=== PATIENT | female | born 2000 | race Caucasian/White ===

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

== ENCOUNTER 2021-03-26 07:55 | Outpatient (CLI) | payer BC, MEDICAID, SELFPAY ==
--- NOTE | 2021-03-26 08:00 | MR_ITS ---
WS: [id number] MRI LUMBAR SPINE NONCONTRAST HISTORY: M54.9 - Dorsalgia, unspecified COMPARISON: 12/12/2020 TECHNIQUE: Sagittal and axial multisequence imaging is submitted. Normal lumbar alignment with no compression fractures or marrow edema. Very mild disc desiccation at L4-5 and L5-S1 without loss of height. Conus terminates normally at L1. L1-L2: Normal. L2-L3: Normal. L3-L4: Normal. L4-L5: Mild annular disc bulge with a moderate LEFT paracentral disc protrusion contacting and deform ing the LEFT lateral thecal sac. Displacement and abutment of the LEFT L5 nerve root. Mild bilateral foraminal stenosis and mild encroachment into the LEFT lateral recess. L5-S1: Mild annular disc bulging with a central disc protrusion and annular fissure. Minimal narrowin g of the LEFT lateral recess. There is also mild narrowing of the foramina, LEFT greater than RIGHT. Small amount of free fluid in the cul-de-sac. MR/MR lumbar spine wo con* [id number] IMPRESSION: 1. Moderate LEFT paracentral disc protrusion at L4-5 contacting and displacing the L5 nerve root in the lateral recess. 2. Mild bilateral foraminal and mild LEFT lateral recess stenosis at L4-5. 3. Central disc protrusion at L5-S1 with narrowing of the LEFT lateral recess. No displacement of the S1 nerve root. 4. Mild bilateral foraminal stenosis, LEFT greater than RIGHT at L5-S1.
== END 2021-03-26 07:56 | disposition home or self-care (01) ==
LOC: RADSHAW 07:58
PROVIDERS: PCP Nurse Practitioner Family; Visit Provider Orthopaedic Surgery
DX: M51.26 Other intervertebral disc displacement, lumbar region (principal); M48.07 Spinal stenosis, lumbosacral region
CPT/HCPCS: 72148

== ENCOUNTER → 2021-04-08 08:28 | Outpatient (BNVA) | payer BC, MEDICAID, SELFPAY | PROVIDERS: PCP Registered Nurse; Referring Provider Orthopaedic Surgery; Visit Provider Anesthesiology Pain Medicine | DX: M48.062 Spinal stenosis, lumbar region with neurogenic claudication (principal); M51.16 Intervertebral disc disorders with radiculopathy, lumbar region; F17.210 Nicotine dependence, cigarettes, uncomplicated | CPT/HCPCS: 99204 ==

== ENCOUNTER → 2021-04-17 14:26 | Outpatient (BNVA) | payer BC, MEDICAID, SELFPAY | PROVIDERS: PCP Registered Nurse; Visit Provider Anesthesiology Pain Medicine | DX: M51.16 Intervertebral disc disorders with radiculopathy, lumbar region (principal); M48.062 Spinal stenosis, lumbar region with neurogenic claudication; F17.210 Nicotine dependence, cigarettes, uncomplicated | CPT/HCPCS: 64483; 64484; J1100; J3490 ==

== ENCOUNTER → 2021-05-01 08:42 | Outpatient (BNVA) | payer BC, MEDICAID, SELFPAY | PROVIDERS: PCP Registered Nurse; Visit Provider Anesthesiology Pain Medicine | DX: M51.16 Intervertebral disc disorders with radiculopathy, lumbar region (principal); M51.17 Intervertebral disc disorders with radiculopathy, lumbosacral region; M48.062 Spinal stenosis, lumbar region with neurogenic claudication; M79.604 Pain in right leg; M79.605 Pain in left leg | CPT/HCPCS: 99214 ==

== ENCOUNTER 2021-07-10 07:17 | Day surgery (SDC) | payer BC, MEDICAID, SELFPAY ==
--- NOTE | 2021-07-08 13:25 | ANES.PREANE2 ---
Pre-Anesthetic Assessment Pre-Anesthetic Assessment: Height/Weight: Height 1.78 m Weight 72.575 kg Proposed Procedure: Operation Date: 07/10/21 11:30 Proposed Procedures p Lumbar Spine Decompression 91670 M48.062(Not Applicable) - Darell Jose, DO Was Beta Lalo taken within 24 hours: N/A Was Clonidine taken within 24 hours: N/A Social: Social History: Tobacco and No alcohol Exam: Pre-Anes Outpt Exam: alert, oriented x 3 and regular rate & rhythm Airway: Submandibular: WNL Cervical ROM: WNL MP: 2 Dentition: Full History/ROS: No significant history except as noted Musc/skel: Musc/skel: Lower Back Pain Anesthetic Plan: ASA status: 2 Anesthesia: General Risk of > 500 ml blood loss (7ml/kg in children): No PFSH Anesthesia PFSH: Social History Smoking and tobacco status: current every day smoker Alcohol intake: never Female Reproductive History: Date of last menstrual period: 04/30/20 Data Anesthesia Cardiac Studies: No Data to Display
[2021-07-08 13:29] VITALS: BMI 22.9
[2021-07-10] VITALS (8 sets, daily range): BP systolic 96–145; BP diastolic 63–82; PULSE 62–94; RESP 15–20; TEMP 36.4–36.7; O2SAT 95–100
--- NOTE | 2021-07-10 | SCC_ITS ---
Procedure Done: 1. Left L4/5 laminectomy with parital facetectomy 8.0 seconds of fluoroscopic guidance, for a cumulative dose of 1.65 mGy, was provided to Dr. Jose by the radiology department. C-arm images of the lumbar spine were saved for the patient's permanent record. [facility]
--- NOTE | 2021-07-10 | XR_ITS ---
WS: [id number] INTRAOPERATIVE TECHNIQUE: 2 Spot fluoroscopic images for intraoperative purposes. FLUOROSCOPY TIME: 8.0 seconds CLINICAL INFORMATION: LUMBAR DECOMPRESSION COMPARISON: None. FINDINGS: Localizer projected over the L4-5 interspace XR/XR lumbar spine 1V [id number] IMPRESSION: Images obtained for intraoperative purposes.
--- NOTE | 2021-07-10 | SCC_ITS ---
Procedure Done: 1. Left L4/5 laminectomy with parital facetectomy 8.0 seconds of fluoroscopic guidance, for a cumulative dose of 1.65 mGy, was provided to Dr. Jose by the radiology department. C-arm images of the lumbar spine were saved for the patient's permanent record. [facility]
[2021-07-10 07:59] LABS: OR HCG Qualitative Urine Negative (Negative)
[2021-07-10] MEDS: sodium chloride 0.9% 1,000 ML 30 ML IV (08:00)
--- NOTE | 2021-07-10 08:28 | P.ANESUD_ITS ---
Pre-Anesthetic Update Pre-Anesthetic Assessment: Date of Surgery/Procedure: 07/10/21 Preop Shanta gnosis: lumbar stenosis with neurogenic decompression Proposed Procedure: Operation Date: 07/10/21 08:45 Proposed Procedures p Lumbar Spine Decompression 61172 M48.062(Not Applicable) - Darell Jose, DO Any changes to Pre-Anesthetic Assessment?: No Last Intake: Intake Last Liquid Date 07/09/21 Last Liquid Time 22:00 Last Solid Date 07/09/21 Last Solid Time 22:00 Labs Last 48hrs: Laboratory Results - last 48 hr 07/10/21 07:58 Urine HCG, Qual Negative Vitals: Temperature 98.1 F 07/10/21 07:43 Pulse Rate 83 07/10/21 07:43 Respiratory Rate 16 07/10/21 07:43 Blood Pressure 112/64 07/10/21 07:43 Blood Pressure Maria L n 80 07/10/21 07:43 Pulse Oximetry 100 07/10/21 07:43 Oxygen Delivery Me thod 07/10/21 07:48 Exam: Pre-Anes Outpt Exam: alert, oriented x 3, clear to auscultation bilaterally and regular rate & rhythm Cardiac Studies: No Data to Display
--- NOTE | 2021-07-10 08:53 | W.PM.OPSUD ---
Surgery/Procedure H&P Update DATE OF PROCEDURE: July 10, 2021 DATE H&P PERFORMED: 07/02/21 H&P UPDATE INFORMATION: I have reviewed H&P completed within last 30 days, I have examined patient prior to procedure and No changes to prior documentation PREOP DIAGNOSIS: lumbar stenosis with neurogenic decompression PLANNED PROCEDURE: Operation Date: 07/10/21 08:45 Proposed Procedures p Lumbar Spine Decompression 19498 M48.062(Not Applicable) - Darell Jose DO
--- NOTE | 2021-07-10 09:54 | P.OP_ITS ---
Operative Report Date of procedure: July 10, 2021 Pre-op Diagnosis: lumbar stenosis with neurogenic decompression Post-op diagnosis: same Procedure Done: 1. Left L4/5 laminectomy with parital facetectomy Surgeon: Darell Jose Avionics System Engineer: Jony Mulligan Avionics System Engineer: KODI Cardozo PA assisted with positioning the patient closure of the patient retraction and suction. Anesthesia: General Estimated blood loss (mL): 5 Condition: stable Disposition: PACU Procedure: 1. Left L4/5 laminectomy with parital facetectomy Patient is brought to the operative suite. After undergoing anesthesia they are placed in the supine position. All areas of impingement are well padded. Patient is then prepped and draped in the normal sterile fashion. A skin incision is made over the L4/5 level. This is confirmed under c-arm guidance. A series of dilators are passed and the tubular retractor is docked on the L4 lamina. A bovie is used to clear the soft tissue off the lamina and the L 4/5 facet joint. A high speed caro is then used to perform the laminectomy and take down the medial aspect of the L 4/5 facet joint. A kerrison rongeure was then used to take down the remaining lamina and smooth the edge of the laminectomy up to the point where the ligamentum flavum attaches. Attention was then brought to the medial aspect of the facet joint. The remaining medial aspect of the superior and inferior aspect of the facet joint were taken down with the kerrison from the pedicle of L4 to L 5. The facet joint had significant hypertrophy. Attention was then brought to the Ligamentum Flavum. The ligament was taken down from the lamina of L4 to L5 and out medially to the remaining facet joint. The ligament was thick. The dura was then exposed. The dura was in good repair. The L4 nerve was then traced with a curette out the L4/5 foramen and found to be adequately decompressed. The L5 nerve was traced with a curette around the L5 pedicle. The lateral recess was opened with a kerrison helping to further decompress the L5 nerve. Wound is then irrigated copiously with saline and surgiflo is used to stop any bleeding. The tubular retractor is removed and the wound is closed with vicryl and monocryl suture. Glue is then used to protect the wound. A sterile dressing is then placed. Patient was then placed in the supine position and transferred to the PACU in stable condition.
[2021-07-10] MEDS: morphine 4 mg/mL SDV 1 mL IVP (10:28)
[2021-07-10] MEDS: HYDROcodone-acetaminophen 5-325 mg Tablet 1 TAB PO (10:56)
--- NOTE | 2021-07-10 13:57 | ANE.PACU2 ---
Inpatient post-anesthesia follow up: Airway intact: Yes Vital signs: Temperature 98.0 F Pulse Rate 62 Respiratory Rate 16 Blood Pressure 96/67 Pulse Oximetry 100 Oxygen Delivery Me thod Room Air Oxygen Flow Rate 98.0 Fraction of Inspir ed Oxygen Hydration adequate: Yes Nausea and vomiting: No Pain level: 3 Mental status: Baseline
== END 2021-07-10 11:15 | disposition home or self-care (01) ==
PROVIDERS: PCP Registered Nurse; Visit Provider Orthopaedic Surgery
PROC: (CPT 63005; principal; 2021-07-10 08:35)
DX: M48.062 Spinal stenosis, lumbar region with neurogenic claudication (principal); F17.210 Nicotine dependence, cigarettes, uncomplicated
CPT/HCPCS: 63047; 72020; 76000; 81025; 84703; 96365; J0330; J0690; J1100; J2270; J2405; J2704; J2710; J3010; J3490; J7030

== ENCOUNTER → 2025-03-16 09:38 | Outpatient (BNVA) | payer BC, SELFPAY | PROVIDERS: PCP Registered Nurse; Visit Provider Nurse Practitioner Women's Health | DX: N92.6 Irregular menstruation, unspecified (principal) | CPT/HCPCS: 81025; 84702 ==

== ENCOUNTER → 2025-03-21 08:01 | Outpatient (BNVA) | payer MEDICAID, SELFPAY | PROVIDERS: PCP Registered Nurse; Visit Provider Nurse Practitioner Women's Health | DX: Z36.87 Encounter for antenatal screening for uncertain dates (principal) | CPT/HCPCS: 76801 ==

== ENCOUNTER → 2025-04-11 08:14 | Outpatient (BNVA) | payer MEDICAID, SELFPAY | PROVIDERS: PCP Registered Nurse; Visit Provider Nurse Practitioner Women's Health | DX: Z34.90 Encounter for supervision of normal pregnancy, unspecified, unspecified trimester (principal); Z34.02 Encounter for supervision of normal first pregnancy, second trimester | CPT/HCPCS: 80307; 82105; 84315; 85025; 86592; 86762; 86803; 86850; 86900; 87086; 87340; 87806 ==

== ENCOUNTER → 2025-04-25 08:07 | Outpatient (BNVA) | payer OTHER, MEDICAID, SELFPAY | PROVIDERS: PCP Registered Nurse; Visit Provider Nurse Practitioner Women's Health | DX: Z34.02 Encounter for supervision of normal first pregnancy, second trimester (principal); Z34.90 Encounter for supervision of normal pregnancy, unspecified, unspecified trimester | CPT/HCPCS: 84315; 87491; 87591; 87661; 88175 ==

== ENCOUNTER 2025-05-31 15:05 | Outpatient (CLI) | payer MEDICAID, OTHER, SELFPAY ==
[2025-05-31 15:12] VITALS: BMI 25.8
[2025-05-31 15:18] VITALS: BP 133/69; PULSE 83
[2025-05-31 15:39] LABS: Glucose Urine UA Negative (Normal); Nitrate Urine Negative (Negative); Specific Gravity, Urine 1.010 (1.005-1.030)
[2025-05-31 16:00] VITALS: TEMP 36.6
[2025-05-31 16:45] LABS: Hematocrit 29.5 % (36-47); Hemoglobin 10.40 g/dL (11.27-16.99); Mean Corpuscular HGB Conc 35.3 g/dL (30-55); Mean Corpuscular Hemoglobin 31.5 pg (27-33); Mean Corpuscular Volume 89.4 fl (85-98); Nucleated Red Blood Cells % 0 %; Platelet Count 222 10^3/cmm (157-399); Red Blood Count 3.30 10^6/uL (3.85-5.65); White Blood Count 16.29 10^3/uL (3.29-11.43)
[2025-05-31] MEDS: ondansetron 2 mg/ML SDV 2 mL 4 MG IVP (16:51)
[2025-05-31 16:58] VITALS: BP 128/67; PULSE 87
[2025-05-31 17:00] LABS: Alanine Aminotransferase 6 U/L (0-33); Albumin Level 4.1 g/dL (3.5-5.2); Alkaline Phosphatase 86 U/L (35-105); Anion Gap 18.3 (5-19); Aspartate Amino Transferase 19 U/L (0-32); Blood Urea Nitrogen 5 mg/dL (6-20); Calcium 8.6 mg/dL (8.5-10.5); Carbon Dioxide 21 mmol/L (22-29); Chloride 104 mmol/L (98-107); Creatinine Clr Calc Pharmacy 254.6984; Globulin 2.8 g/dL (1.3-4.6); Glucose 94 mg/dL (65-115); Osmolality Calculated 287 mOsm/kg (285-295); Potassium 3.3 mmol/L (3.5-5.1); Sodium 140 mmol/L (136-145); Total Protein 6.9 g/dL (6.6-8.7)
[2025-05-31 19:15] VITALS: BP 121/58; PULSE 92
[2025-05-31 19:45] VITALS: BP 121/58; PULSE 92; RESP 16; TEMP 36.6; O2SAT 98
== END 2025-05-31 20:22 | disposition home or self-care (01) ==
LOC: OPOB 15:05 → OBGYN 15:06
PROVIDERS: PCP Registered Nurse; Visit Provider Obstetrics & Gynecology
DX: O26.899 Other specified pregnancy related conditions, unspecified trimester (principal); Z3A.00 Weeks of gestation of pregnancy not specified; R10.811 Right upper quadrant abdominal tenderness
CPT/HCPCS: 36415; 59025; 80053; 81001; 85025; 99211; J2405; J7120; Q0162

== ENCOUNTER → 2025-06-01 16:05 | Outpatient (BNVA) | payer MEDICAID, OTHER, SELFPAY | PROVIDERS: PCP Registered Nurse; Visit Provider Obstetrics & Gynecology | DX: Z34.02 Encounter for supervision of normal first pregnancy, second trimester (principal) | CPT/HCPCS: 84315 ==

== ENCOUNTER → 2025-07-05 08:22 | Outpatient (BNVA) | payer OTHER, MEDICAID, SELFPAY | PROVIDERS: PCP Registered Nurse; Visit Provider Obstetrics & Gynecology | DX: Z34.90 Encounter for supervision of normal pregnancy, unspecified, unspecified trimester (principal) | CPT/HCPCS: 82950; 84315; 85025 ==

== ENCOUNTER → 2025-07-19 08:12 | Outpatient (BNVA) | payer OTHER, MEDICAID, SELFPAY | PROVIDERS: PCP Registered Nurse; Visit Provider Obstetrics & Gynecology | DX: Z34.02 Encounter for supervision of normal first pregnancy, second trimester (principal) | CPT/HCPCS: 84315 ==

== ENCOUNTER → 2025-08-03 09:05 | Outpatient (BNVA) | payer OTHER, MEDICAID, SELFPAY | PROVIDERS: PCP Registered Nurse; Visit Provider Obstetrics & Gynecology | DX: Z01.89 Encounter for other specified special examinations (principal) | CPT/HCPCS: 81000 ==

== ENCOUNTER → 2025-08-18 09:45 | Outpatient (BNVA) | payer MEDICAID, SELFPAY | PROVIDERS: PCP Registered Nurse; Visit Provider Nurse Practitioner Women's Health | DX: O99.012 Anemia complicating pregnancy, second trimester (principal) | CPT/HCPCS: 84315; 85025 ==

== ENCOUNTER → 2025-08-30 08:53 | Outpatient (BNVA) | payer MEDICAID, SELFPAY | PROVIDERS: PCP Registered Nurse; Visit Provider Obstetrics & Gynecology | DX: Z34.03 Encounter for supervision of normal first pregnancy, third trimester (principal) | CPT/HCPCS: 84315; 87081 ==

== ENCOUNTER 2025-09-11 11:30 | Oncology outpatient (recurring) (ONCR) | payer MEDICAID, SELFPAY ==
[2025-08-31] MEDS: iron sucrose 200 MG/100 ML BAG IV (08:27)
[2025-08-31 09:03] VITALS: BP 135/69; PULSE 71; RESP 16; TEMP 36.8; O2SAT 98
[2025-09-04 12:04] VITALS: BP 162/92; PULSE 87; RESP 16; TEMP 36.6; O2SAT 99
[2025-09-04] MEDS: iron sucrose 200 MG/100 ML BAG IV (12:17)
[2025-09-04 12:54] VITALS: BP 144/88; PULSE 84; RESP 16; TEMP 36.7; O2SAT 98
[2025-09-06] MEDS: iron sucrose 200 MG/100 ML BAG IV (11:14)
[2025-09-06 11:48] VITALS: BP 146/74; PULSE 90; RESP 18; TEMP 36.6; O2SAT 98
[2025-09-08 09:56] VITALS: BP 145/84; PULSE 82; RESP 18; TEMP 37; O2SAT 98
[2025-09-08] MEDS: iron sucrose 200 MG/100 ML BAG IV (10:03)
[2025-09-11] MEDS: iron sucrose 200 MG/100 ML BAG IV (11:42)
[2025-09-11 11:43] VITALS: BP 131/89; PULSE 76; RESP 17; TEMP 36.7; O2SAT 97
== END 2025-09-17 23:59 | disposition home or self-care (01) ==
PROVIDERS: PCP Registered Nurse; Visit Provider Nurse Practitioner Women's Health
DX: O99.013 Anemia complicating pregnancy, third trimester; Z79.899 Other long term (current) drug therapy; Z53.9 Procedure and treatment not carried out, unspecified reason
CPT/HCPCS: 84315; 96365; J1756; J7050

== ENCOUNTER 2025-09-12 23:19 | Inpatient (IN) | payer MEDICAID, SELFPAY ==
[2025-09-12] VITALS (10 sets, daily range): BP systolic 136–155; BP diastolic 80–106; PULSE 61–77; BMI 30.1
[2025-09-12 19:46] LABS: Hematocrit 28.7 % (36-47); Hemoglobin 10.00 g/dL (11.27-16.99); Mean Corpuscular HGB Conc 34.8 g/dL (30-55); Mean Corpuscular Hemoglobin 30.2 pg (27-33); Mean Corpuscular Volume 86.7 fl (85-98); Nucleated Red Blood Cells % 0 %; Platelet Count 174 10^3/cmm (157-399); Red Blood Count 3.31 10^6/uL (3.85-5.65); White Blood Count 10.38 10^3/uL (3.29-11.43)
--- NOTE | 2025-09-12 19:55 | P.HP_ITS ---
Providers/Chief Complaint 2 Admitting Physician: Tatyana Rg MD Primary Care Provider: ROBYN Mobley Chief Complaint: IOL for HTN HPI INVESTIGATIVE REPORTER History of Present Illness Marcie Griffith is a 24 year old female G1@38+4 wks admitted for IOL due to new onset of GHTN. No complaints, says her family is full of HTN. Review of Systems 2 Narrative: Pertinent positives listed in HPI: Const: Denies: fever(s) or chills Card: Denies: chest pain, palpitations or syncope Resp: Denies: SOB, cough GI: Denies: abdominal pain, nausea or vomiting : Denies: flank pain, dysuria or urinary frequency Musc: Denies: back pain or extremity swelling Skin/Breast: Denies: rash, pruritus or breast pain Neuro: Denies: headache(s) or dizziness Psych: Denies: depression or mood swings Endo: Denies: polyuria, cold or heat intolerance Dhiraj/Lymph: Denies: easy bruising or easy bleeding Medications/Allergies Home Medications ?Medication ?Instructions ?Recorded ?Confirmed ?Last Taken ?Type acetaminophen 325 mg tablet 325 mg PO QID PRN Pain 03/0809/12/25 2 Days Ago History (Tylenol) ~07/08/21 gummy with folic acid PO 04/11/25 09/12/25 Un known History ferrous sulfate 325 mg (65 mg 325 mg PO BID 04/25/25 1 11/12/24 Unknown History iron) tablet Allergies Allergy/AdvReac Type Severity Reaction Status Date / Time Sulfa (Sulfonamide Allergy Intermediate Unknown Verified 09/12/25 07:32 Antibiotics) PFSH INVESTIGATIVE REPORTER 2 PFSH: Medical History (Updated 09/12/25 @ 17:51 by Merari Garibay APN, BRYAN) No pertinent past medical history neghx: htn, dm, thyroid, dvt/pe PCP: Anila Bennett ACCOUNTING OFFICE MANAGER at [facility] Surgical History History of back surgery (~07/2021) Left L4/5 laminectomy with parital facetectomy-- Dr Barbour Family History Grandmother Breast cancer Hypertension Colon cancer Sister Hypertension Mother Hypertension Denies family history of Ovarian cancer Prostate cancer Diabetes Heart disease Hyperlipidemia Uterine cancer Thyroid disease Stroke Social History Smoking and tobacco/nicotine status: former use of tobacco/nicotine (1/2 pack a day, quit 03/2025) Second hand smoke exposure: No Alcohol intake: never Substance/Drug Use: never History History History 2 1 Term Miscarriages/Ectopic Living Children Care CASSIDY Calculator 2 Estimated Delivery Date Method Current WG Current Estimate 09/22/25 Ultrasound #1 38w 4d Specific Issues/Plans * PREMUTATION FRAGILE X SYNDROME - MFM consult 05/11/25 * ANEMIA; hbg 10.1--failed oral iron; completed her last iron infusion on 09/11/2025 * ANXIETY -managed without medication Vitals/I&O/Wt Last Vital Signs Pulse 72 09/12/25 19:47 BP 152/89 09/12/25 19:47 Physical Exam 2 Narrative: Appearance: grossly normal Attitude: calm and engaged, appropriate eye contact Const: no acute distress, oriented x3 cooperative Chest: Symmetrical chest wall rise Resp: normal respiratory effort, clear to auscultation bilaterally Cardio: regular rate and regular rhythm GI: Soft to palpation, Non Tender, no Guarding, no masses : No Uterine tenderness, FT/thick per staff Extremity: normal inspection, pedal edema Neuro: oriented x3 and moves all extremities, speech normal Psych: mental status grossly normal, and Normal thought process present Skin: no rashes or lesions noted Data 09/12/25 19:28 09/12/25 19:28 Results Labs OB ([facility]): 2 Blood Type O Positive 04/11/25 Antibody Screen Negative 04/11/25 Hct, (36-47) 28.7 % L Today Hgb, (11.27-16.99) 10.00 g/dL L Today Rho(D) Type Rh positive 04/11/25 Plt Count, (157-399) 174 10^3/cmm Today Hep Bs Antigen, (Nonreactive) Non-reactive 04/11/25 Hepatitis C Antibody, (Nonreactive) Non-reactive 03/20 02/10 Rubella IgG Antibody, (0.0-10.0) 87.3 IU/mL H 06/24/2 5 RPR, (Nonreactive) Nonreactive 04/11/25 HIV 1&2 Ab & HIV 1 Ag, (Non-Reactiv) Non-reactive Glucose 1 Hr 50 gm, (85-140) 84 mg/dL L 07/05/25 Ser , Semi-Qnt 06767.00 mIU/mL 03/16/25 HCG, Qual, (Negative) Positive H 03/16/25 Urine Opiates Screen, (Negative) Negative ng/mL 5 Ur Barbiturates Screen, (Negative) Negative ng/mL 04/11 Ur Phencyclidine Scrn, (Negative) Negative ng/mL Ur Amphetamines Screen, (Negative) Negative ng/mL 04/11 U Benzodiazepines Scrn, (Negative) Negative ng/mL 04/11 Urine Cocaine Screen, (Negative) Negative ng/mL 5 U Marijuana (THC) Screen, (Negative) Negative ng/mL Micro Urine Specimen 04/11/25 Pap Smear Interpret See note 04/25/25 A&P Assessment and plan 1. Gestational hypertension, third trimester: IOL, will get labs and serial BP, her first was high severe, but once pharmacy verified PO procardia then the rest were mild range so medication held. 2. Primigravida in third trimester: 3. Anemia affecting in third trimester: 4. Carrier of fragile X syndrome: 5. Encounter for supervision of normal first in third trimester: 6. Anxiety: PDMP PDMP Reviewed: Not Reviewed Attestations 2 Medical Necessity Statement*: OB IOL Coding Level of Care Code Acute Code for Chg Fwd Diagnoses Gestational hypertension, third trimester O13.3 Trimester: third trimester Primigravida in third trimester Z34.03 Anemia affecting in third trimester O99.013 Trimester: third trimester Carrier of fragile X syndrome Z14.8 Encounter for supervision of normal first in third trimester Z34.03 Trimester: third trimester Anxiety F41.9
[2025-09-12 19:57] LABS: Glucose Urine UA Negative (Normal); Nitrate Urine Negative (Negative); Specific Gravity, Urine 1.005 (1.005-1.030)
[2025-09-12 19:59] LABS: Add Urine Microscopic? YES
[2025-09-12 20:05] LABS: Alanine Aminotransferase 10 U/L (0-33); Albumin Level 3.5 g/dL (3.5-5.2); Alkaline Phosphatase 167 U/L (35-105); Anion Gap 16.9 (5-19); Aspartate Amino Transferase 15 U/L (0-32); Blood Urea Nitrogen 4 mg/dL (6-20); Calcium 8.8 mg/dL (8.5-10.5); Carbon Dioxide 20 mmol/L (22-29); Chloride 103 mmol/L (98-107); Globulin 2.8 g/dL (1.3-4.6); Glucose 105 mg/dL (65-115); Osmolality Calculated 281 mOsm/kg (285-295); Sodium 137 mmol/L (136-145); Total Protein 6.3 g/dL (6.6-8.7)
[2025-09-12 20:09] LABS: Potassium 2.9 mmol/L (3.5-5.1)
[2025-09-12 20:20] LABS: UPRO/UCREAT Ratio 0.17 mg/mg CR
[2025-09-13] VITALS (94 sets, daily range): BP systolic 108–174; BP diastolic 56–108; PULSE 64–146; RESP 16; TEMP 36.4–36.6; O2SAT 99; BMI 30.1
[2025-09-13] MEDS: oxytocin 30 UNIT/500 ML BAG IV (08:08)
--- NOTE | 2025-09-13 08:52 | PM.MISC ---
Miscellaneous Note Note: cvx 150/-2, vertex. Balloon placed in cervix, tolerated well. FHR reactive. Dr Rg
--- NOTE | 2025-09-13 11:05 | PM.MISC ---
Miscellaneous Note Note: cvx 4/-2, vertex, AROM clear, pit at 14mU, FHR reactive. Dr contreras
[2025-09-13] MEDS: ondansetron 2 mg/ML SDV 2 mL 4 MG IVP ×3 (11:34→20:38)
[2025-09-13] MEDS: ROPivacaine premix 200 MG/100 ML PREMIX 10 MG EPIDURAL (12:26)
--- NOTE | 2025-09-13 12:41 | ANES.PREANE2 ---
Pre-Anesthetic Assessment Height/Weight: Height 1.78 m Weight 95.254 kg Pulse BP Pulse Ox O2 Del Method 78 144/84 99 Room Air 09/13/25 12:32 09/13/25 12:32 09/13/25 12:22 09/13/25 05:33 Preop Diagnosis: IUP Epidural Familial anesthetic complications: None Was Beta Lalo taken within 24 hours: N/A Was Clonidine taken within 24 hours: N/A Last intake: > 8 hrs Social No alcohol and No tobacco Exam alert, oriented x 3, clear to auscultation bilaterally and regular rate & rhythm Airway Mallampati: Class III Dentition: full Anesthetic Plan ASA status: 2 Anesthesia: Regional (specify below) Risk of > 500 ml blood loss (7ml/kg in children): Yes, adequate IV access and fluids planned Medications/Allergies Home Medications ?Medication ?Instructions ?Recorded ?Confirmed ?Last Taken ?Type acetaminophen 325 mg tablet 325 mg PO QID PRN Pain 12/21/20 09/12/25 2 Days Ago History (Tylenol) ~07/08/21 gummy with folic acid PO 04/11/25 09/12/25 Unknown History ferrous sulfate 325 mg (65 mg 325 mg PO BID 04/25/25 09/12/25 Unknown History iron) tablet Allergies Allergy/AdvReac Type Severity Reaction Status Date / Time Sulfa (Sulfonamide Allergy Intermediate Unknown Verified 09/12/25 07:32 Antibiotics) Current Medications Generic Name Dose Route Start Last Admin Trade Name Freq PRN Reason Stop Dose Admin Dextrose/Lactated Ringer's 1,000 mls @ 125 mls/hr 09/12/25 19:30 09/13/25 08:09 Dextrose 5%-Lactated Ringers IV Not Given .Q8H BONNIE Oxytocin 30 unit in 500 mls @ 2 mls/hr 09/13/25 08:00 09/13/25 11:56 Pitocin IV 8 milliunit/min .Q24H BONNIE 8 mls/hr Protocol Titration 2 MILLIUNIT/MIN Ondansetron HCl 4 mg 09/12/25 19:17 09/13/25 11:34 Ondansetron 2 Mg/Ml Sdv 2 Ml IVP 4 mg Q4H PRN Administration NAUSEA AND VOMITING PFSH Anesthesia Medical History (Updated 09/12/25 @ 17:51 by Merarinigel Garibay APN, BRYAN) No pertinent past medical history neghx: htn, dm, thyroid, dvt/pe PCP: Anila Bennett MANAGER STRATEGIC DEVELOPMENT at [facility] Surgical History History of back surgery (~07/2021) Left L4/5 laminectomy with parital facetectomy-- Dr Barbour Family History Grandmother Breast cancer Hypertension Colon cancer Sister Hypertension Mother Hypertension Denies family history of Ovarian cancer Prostate cancer Diabetes Heart disease Hyperlipidemia Uterine cancer Thyroid disease Stroke Social History Smoking and tobacco/nicotine status: former use of tobacco/nicotine (1/2 pack a day, quit 03/2025) Second hand smoke exposure: No Alcohol intake: never Substance/Drug Use: never Female Reproductive History : 1 Data Anesthesia 09/12/25 19:28 09/12/25 19:28 Short CBC 09/12/25 Range/Units 19:28 WBC 10.38 (3.29-11.43) 10^3/uL Hgb 10.00 L (11.27-16.99) g/dL Hct 28.7 L (36-47) % MCV 86.7 (85-98) fl Plt Count 174 (157-399) 10^3/cmm Neut % (Auto) 66.4 % Neut # (Auto) 6.90 (1.8-7.7) 10^3/uL BMP 09/12/25 19:28 Sodium 137 Potassium 2.9 L Chloride 103 Carbon Dioxide 20 L BUN 4 L Creatinine 0.5 Glucose 105 Calcium 8.8 Liver Function 09/12/25 Range/Units 19:28 Total Bilirubin 0.3 (0.15-1.2) mg/dL AST 15 (0-32) U/L ALT 10 (0-33) U/L Alkaline Phosphatase 167 H (35-105) U/L Albumin 3.5 (3.5-5.2) g/dL Urine 09/12/25 Range/Units 19:26 Urine Color Yellow (Yellow) Urine Appearance Clear (CLEAR) Urine pH 7.0 (5-7) Ur Specific [place] 1.005 (1.005-1.030) Urine Protein Negative (Negative) Urine Glucose (UA) Negative (Normal) Urine Ketones Negative (Negative) Urine Nitrate Negative (Negative) Urine Bilirubin Negative (Negative) Ur Leukocyte Esterase Negative (Negative) Urine RBC 0-2 (0-2) /hpf Urine WBC 0-5 (0-5) /hpf Blood Bank 09/12/25 19:28 Blood Type O Positive Rho(D) Type Rh positive Antibody Screen Negative Anesthesia Procedures Epidural Time Out Performed: Yes Consents Signed: Procedure Consent Consent: requested by attending/covering physician, from patient, from other, risks and benefits reviewed and patient agrees to proceed Lumbar Level: L3-L4 Epidural position: sitting Epidural procedure: sterile prep of area, 1% lidocaine to numb the area, 18 g needle, negative for paresthesia passed, neg for paresthesia, test dose given, 1.5% xylocaine 1:200k epi (5 ml), 0.2% Ropivacaine bolus ml (5 ml), placed PCEA, no systemic response, sterile dressing applied, L.U.D. no apparent complications and 0.2% Ropiavacaine @ mls/hr (13)
[2025-09-13] MEDS: ROPivacaine premix 200 MG/100 ML PREMIX 13 MG EPIDURAL (17:13)
[2025-09-13] MEDS: metoclopramide 5 mg/mL SDV 2 mL 10 MG IV (19:07)
[2025-09-13] MEDS: tranexamic acid 1,000 MG/100 ML PREMIX 600 MG IV (20:28)
--- NOTE | 2025-09-13 20:54 | PM.DELIVERY ---
Delivery Note: Date of delivery: September 13, 2025 Procedure: Delivering Physician: Dr Rg Estimated blood loss (mL): 450 Findings: viable male infant Delivery: With maternal effort patient delivered vertex viable male by with minor nip of scissors of tight hymenal remnant. Nuchal cord x 1 reduced. Baby placed on maternal abdomen. Delayed cord clamp at 60 seconds. Second degree laceration repaired with 2-0 chromic. Right labial tear with vaginal wall extension repaired. Uterine atony controlled with TXA, hemabate, and pitocin along with massage and pressure on laceration until repair improved all bleeding. 10 cc local used just prior to delivery. All counts correct upon stopping. Mom and baby recovering. Some elevated BP during treatment so will reassess after bed and patient plced normally. History History History 1 Term Miscarriages/Ectopic Living Children A&P PDMP PDMP Reviewed: Not Reviewed Coding Level of Care Code Acute Code for Chg Fwd
[2025-09-13] MEDS: labetalol 5 mg/mL SDV 20mL 20 MG IVP ×2 (21:09→22:01)
--- NOTE | 2025-09-13 22:00 | PC.NURSE ---
Induction of labor for hypertension.
--- NOTE | 2025-09-13 22:05 | PC.NURSE ---
at 220 administration of 20mg ivp labetalol 5mg was administered and bp cycled resulting in pressure of 137/74. dr. contreras on the phone with rn at this time and ordered for administration to be stopped.
[2025-09-13] MEDS: NIFEdipine ER (24 hr) 30 mg Tablet PO (22:34)
[2025-09-13] MEDS: magnesium sulfate premix 4 GM/100 ML PREMIX IV (22:36)
[2025-09-13] MEDS: magnesium sulfate premix 20 GM/500 ML BAG IV (22:56)
[2025-09-14] VITALS (19 sets, daily range): BP systolic 121–154; BP diastolic 65–97; PULSE 87–109; RESP 16; TEMP 36.4–36.7
[2025-09-14] MEDS: PRENATAL VIT NO.130/IRON/FOLIC 1 EACH TABLET PO (04:18)
[2025-09-14 05:21] LABS: Magnesium Level (OB Only) 3.5 mg/dL (5.0-7.5)
[2025-09-14 05:41] LABS: Hematocrit 29.4 % (36-47); Hemoglobin 10.20 g/dL (11.27-16.99); Mean Corpuscular HGB Conc 34.7 g/dL (30-55); Mean Corpuscular Hemoglobin 30.1 pg (27-33); Mean Corpuscular Volume 86.7 fl (85-98); Platelet Count 185 10^3/cmm (157-399); Red Blood Count 3.39 10^6/uL (3.85-5.65); White Blood Count 17.69 10^3/uL (3.29-11.43)
[2025-09-14] MEDS: magnesium sulfate premix 20 GM/500 ML BAG IV (08:08)
--- NOTE | 2025-09-14 12:18 | P.PN_ITS ---
Subjective 2 Subjective: Feels tired, cathter in, lochia wnl. + BF, happy. Vitals/I&O/Wt Last Vital Signs Temp 97.7 F 09/14/25 07:55 Pulse 108 H 09/14/25 07:55 Resp 16 09/14/25 07:55 BP 143/77 09/14/25 07:55 Pulse Ox 99 09/13/25 12:22 O2 Del Method Room Air 09/14/25 07:55 09/13/25 09/14/25 09/14/25 22:59 06:59 14:59 Intake Total 1655.099 / 0248.224 1508 / 8700.000 500 / 500 Output Total 400 / 400 73794 / 02182 1750 / 1750 Balance 1255.099 / 1300.000 -3215 / -1915.000 -1250 / -1250 Weight last 48 hrs Weight 210 lb Weight 210 lb Physical Exam 2 Narrative: Appearance: grossly normal Attitude: calm and engaged, appropriate eye contact Const: no acute distress, oriented x3 cooperative Chest: Symmetrical chest wall rise Resp: normal respiratory effort, clear to auscultation bilaterally Cardio: regular rate and regular rhythm GI: Soft to palpation, fundus firm no Guarding, no masses Extremity: normal inspection, + pedal edema Neuro: oriented x3 and moves all extremities, speech normal Psych: mental status grossly normal, and Normal thought process present Skin: no rashes or lesions noted Urinary Catheter Management: Latex Free: Cath Placed During This Visit: yes, but has since been removed by the nurse Reason for Continuing Indwelling Catheter: Accurate Measurement of Urinary Output in Critically Ill Patients Urinary Catheter Date of Insertion: 09/13/25 Urinary Catheter Time of Insertion: 13:00 Date Urinary Catheter Removed: 09/13/25 Time Urinary Catheter Discontinued: 20:00 Data 09/14/25 04:45 09/12/25 19:28 A&P Assessment and plan 1. Pre-eclampsia in period: After delivery had several severe range BP treated with labetalol protocol. Hence started on magnesium as pp Pre Eclampsia. Diuresis well. Will DC cathter. procardia 30 mg XL added with great response. Mag until tonight. 2. Gestational hypertension, third trimester: See above 3. Primigravida in third trimester: Delivered 4. Anemia affecting in third trimester: Stable, on iron. PDMP PDMP Reviewed: Not Reviewed Attestations 2 Medical Necessity Statement*: NA Coding Level of Care Code Acute Code for Chg Fwd Diagnoses Pre-eclampsia in period O14.95 Gestational hypertension, third trimester O13.3 Trimester: third trimester Primigravida in third trimester Z34.03 Anemia affecting in third trimester O99.013 Trimester: third trimester
[2025-09-14] MEDS: benzocaine-menthol 78 gm Canister 1 SPRAY TOPICAL (14:34)
[2025-09-14] MEDS: NIFEdipine ER (24 hr) 30 mg Tablet PO (22:36)
[2025-09-15 04:00] VITALS: BP 120/76; PULSE 80; RESP 16; TEMP 36.6
[2025-09-15] MEDS: NIFEdipine ER (24 hr) 30 mg Tablet PO (06:10)
[2025-09-15] MEDS: PRENATAL VIT NO.130/IRON/FOLIC 1 EACH TABLET PO (06:10)
--- NOTE | 2025-09-15 09:43 | PM.OBGYDC ---
Discharge Providers STREET VENDOR Date of Admission: 09/12/25 23:19 Date of Discharge: 09/15/25 Attending Provider at Admission: Tatyana Rg MD Attending Provider at Discharge: Tatyana Rg MD Primary Care Provider: ROBYN Mobley Diagnoses at Discharge Discharge Diagnosis 1. Pre-eclampsia in period: 2. Gestational hypertension, third trimester: 3. Primigravida in third trimester: 4. Anemia affecting in third trimester: Reason for Visit Reason for Visit: IOL for HTN Hospital Course Hospital Course Admitted for IOL due to gHTN. PC ratio wnl. Delivered by . During recovery had to be treated for severe range BP qualifying for preeclampsia diagnosis. Treated with magnesium x 24 hours and given daily procardia 30 mg xl. Progressed very well. BP remained wnl and discharged home on procardia 30 xl x 1 week. Will get BP check on Thursday. Information Peripartum Data: Delivery Method: Vaginal Physical Exam Narrative: Appearance: grossly normal Attitude: calm and engaged, appropriate eye contact Const: no acute distress, oriented x3 cooperative Chest: Symmetrical chest wall rise Resp: normal respiratory effort, clear to auscultation bilaterally Cardio: regular rate and regular rhythm GI: Soft to palpation, fundus firm Extremity: normal inspection, + pedal edema Neuro: oriented x3 and moves all extremities, speech normal Psych: mental status grossly normal, and Normal thought process present Skin: no rashes or lesions noted Urinary Catheter Management: Latex Free: Cath Placed During This Visit: yes, but has since been removed by the nurse Reason for Continuing Indwelling Catheter: Accurate Measurement of Urinary Output in Critically Ill Patients Urinary Catheter Date of Insertion: 09/13/25 Urinary Catheter Time of Insertion: 13:00 Date Urinary Catheter Removed: 09/13/25 Time Urinary Catheter Discontinued: 20:00 History History History 1 Term Miscarriages/Ectopic Living Children Discharge Data Studies Completed and Pending Laboratory Results WBC 17.69 10^3/uL (3.29-11.43) H 09/14/25 04:45 RBC 3.39 10^6/uL (3.85-5.65) L 09/14/25 04:45 Hgb 10.20 g/dL (11.27-16.99) L 09/14/25 04:45 Hct 29.4 % (36-47) L 09/14/25 04:45 MCV 86.7 fl (85-98) 09/14/25 04:45 MCH 30.1 pg (27-33) 09/14/25 04:45 MCHC 34.7 g/dL (30-55) 09/14/25 04:45 RDW 13.7 % (12.1-15.1) 09/14/25 04:45 Plt Count 185 10^3/cmm (157-399) 09/14/25 04:45 MPV 10.4 fL (7.4-10.4) 09/14/25 04:45 Neut % (Auto) 66.4 % 09/12/25 19: Lymph % (Auto) 23.4 % 09/12/25 19: [place] % (Auto) 8.3 % 09/12/25 19: Eos % (Auto) 1.0 % 09/12/25: Baso % (Auto) 0.4 % 09/12/25: Neut # (Auto) 6.90 10^3/uL (1.8-7.7) 09/12/25 19: Lymph # (Auto) 2.4 10^3/uL (0.8-4.8) 09/12/25 19: [place] # (Auto) 0.9 10^3/uL (0.2-0.9) 09/12/25 19: Eos # (Auto) 0.1 10^3/uL (0.0-0.8) 09/12/25: Baso # (Auto) 0.0 10^3/uL (0.0-0.1) 09/12/25 19: Nucleated RBC % (auto) 0 % 09/12/25: Nucleated RBCs # 0.0 /100WBC 09/12/25 19: Sodium 137 mmol/L (136-145) 09/12/25 19: Potassium 2.9 mmol/L (3.5-5.1) L 09/12/25 19: Chloride 103 mmol/L (98-107) 09/12/25: Carbon Dioxide 20 mmol/L (22-29) L 09/12/25: Anion Gap 16.9 (5-19) 09/12/25: BUN 4 mg/dL (6-20) L 09/12/25 19: Creatinine 0.5 mg/dL (0.5-0.9) 09/12/25 19: GFR Calculation 152.9 mL/min (90-130) H 09/12/25 19: Glucose 105 mg/dL (65-115) 09/12/25 19: Calculated Osmolality 281 mOsm/kg (285-295) L 09/12/25 19: Calcium 8.8 mg/dL (8.5-10.5) 09/12/25 19: Magnesium 3.5 mg/dL (5.0-7.5) L* 09/14/25 04:45 Total Bilirubin 0.3 mg/dL (0.15-1.2) 09/12/25: AST 15 U/L (0-32) 09/12/25: ALT 10 U/L (0-33) 09/12/25 19: Alkaline Phosphatase 167 U/L (35-105) H 09/12/25 19: Total Protein 6.3 g/dL (6.6-8.7) L 09/12/25 19: Albumin 3.5 g/dL (3.5-5.2) 09/12/25 19: Globulin 2.8 g/dL (1.3-4.6) 09/12/25 19: Urine Color Yellow (Yellow) 09/12/25 19: Urine Appearance Clear (CLEAR) 09/12/25: Urine pH 7.0 (5-7) 09/12/25: Ur Specific [place] 1.005 (1.005-1.030) 09/12/25 19: Urine Protein Negative (Negative) 09/12/25: Urine Glucose (UA) Negative (Normal) 09/12/25 Urine Ketones Negative (Negative) 09/12/25 Urine Blood Trace (Negative) A 09/12/25: Urine Nitrate Negative (Negative) 09/12/25: Urine Bilirubin Negative (Negative) 09/12/25: Urine Urobilinogen 0.2 mg/dL (Negative) 09/12/25: Ur Leukocyte Esterase Negative (Negative) 11/25/25 19:26 Urine RBC 0-2 /hpf (0-2) 09/12/25 19:26 Urine WBC 0-5 /hpf (0-5) 09/12/25 19:26 Ur Squamous Epith Cells 0-5 /hpf (0-5) 09/12/25 19:26 Amorphous Sediment Not Reportable 09/12/25 19:26 Urine Bacteria None seen /hpf (NONE) 09/12/25 19:26 Hyaline Casts 0-4 /lpf H 09/12/25 19:26 U Random Total Protein 6 mg/dL 09/12/25 19: Urine Creatinine 35 mg/dL (28-217) 09/12/25 19: Protein/Creatinin Ratio 0.17 mg/mg CR 09/12/25 19:26 Blood Type O Positive 09/12/25 19:28 Rho(D) Type Rh positive 09/12/25 19:28 Antibody Screen Negative 09/12/25 19:28 Vitals Last Vital Signs Temp 97.9 F 09/15/25 04:00 Pulse 80 09/15/25 04:00 Resp 16 09/15/25 04:00 BP 120/76 09/15/25 04:00 Pulse Ox 99 09/13/25 12:22 O2 Del Method Room Air 09/14/25 18:20 Results Labs OB ([facility]): Blood Type O Positive 09/12/25 Antibody Screen Negative 09/12/25 Hct, (36-47) 29.4 % L 09/14/25 Hgb, (11.27-16.99) 10.20 g/dL L 09/14/25 Rho(D) Type Rh positive 09/12/25 Plt Count, (157-399) 185 10^3/cmm 09/14/25 Hep Bs Antigen, (Nonreactive) Non-reactive 04/11/25 Hepatitis C Antibody, (Nonreactive) Non-reactive 04/11/25 Rubella IgG Antibody, (0.0-10.0) 87.3 IU/mL H 04/11/25 RPR, (Nonreactive) Nonreactive 04/11/25 HIV 1&2 Ab & HIV 1 Ag, (Non-Reactiv) Non-reactive 04/11/25 Glucose 1 Hr 50 gm, (85-140) 84 mg/dL L 07/05/25 Ser , Semi-Qnt 64240.00 mIU/mL 03/16/25 HCG, Qual, (Negative) Positive H 03/16/25 Urine Opiates Screen, (Negative) Negative ng/mL 04/11/25 Ur Barbiturates Screen, (Negative) Negative ng/mL 04/11/25 Ur Phencyclidine Scrn, (Negative) Negative ng/mL 04/11/25 Ur Amphetamines Screen, (Negative) Negative ng/mL 04/11/25 U Benzodiazepines Scrn, (Negative) Negative ng/mL 04/11/25 Urine Cocaine Screen, (Negative) Negative ng/mL 04/11/25 U Marijuana (THC) Screen, (Negative) Negative ng/mL 04/11/25 Micro Urine Specimen 04/11/25 Pap Smear Interpret See note 04/25/25 Discharge Plan Discharge Patient Disposition: Home Condition: Stable Prescriptions: New nifedipine 30 mg Tablet Extended Release 24hr 30 mg PO DAILY Qty: 7 0RF acetaminophen 325 mg Tablet 650 mg PO Q6H PRN (Reason: Mild pain or temp > 100.4) Qty: 0 0RF ibuprofen 800 mg Tablet 800 mg PO TID Qty: 0 0RF Continued ferrous sulfate 325 mg (65 mg iron) tablet 325 mg PO BID Discontinued acetaminophen [Tylenol] 325 mg tablet 325 mg PO QID PRN (Reason: Pain) No Action gummy with folic acid 1 tab PO DAILY Patient Comments: Taking 2 Daily Discharge Order = DC NOW: Discharge Order (Routine); Ordered 09/15/25 Ordered By: Tatyana Rg Discharge Diet: Regular Discharge Activity: Increase activity as tolerated Patient Instructions: Depression (DC), Opioid Safety (DC), Preeclampsia and Eclampsia After Delivery (GEN), Hemorrhage (DC), OB Discharge Report, OB Food/Drug Interaction Guide, Opioid Safety, OB Home Care, OB Vaginal Deliveries - [facility], Patient Portal & [facility] Instructions, Abnormal Bleeding Activity Restrictions/Additional Instructions: Pelvic rest x 6 weeks, FU Thursday BP check nurse visit Assessment: sp Discharge Attestations STREET VENDOR Time Spent in Discharge Care*: less than 30 min Coding Level of Care Code Acute Code for Chg Fwd Diagnoses Pre-eclampsia in period O14.95 Gestational hypertension, third trimester O13.3 Trimester: third trimester Primigravida in third trimester Z34.03 Anemia affecting in third trimester O99.013 Trimester: third trimester
[2025-09-15 10:00] VITALS: BP 125/73; PULSE 75; RESP 16; TEMP 36.7
[2025-09-15 14:30] VITALS: BP 133/94; PULSE 86; RESP 16; TEMP 36.7; O2SAT 98
== END 2025-09-15 14:30 | disposition home or self-care (01) | DRG 560 ==
LOC: OPOB 23:19 → OBGYN 23:19
PROVIDERS: Admitting Provider Obstetrics & Gynecology; PCP Registered Nurse; Visit Provider Obstetrics & Gynecology
DX: O13.4 Gestational [pregnancy-induced] hypertension without significant proteinuria, complicating childbirth (principal); O99.02 Anemia complicating childbirth; D64.9 Anemia, unspecified; O99.344 Other mental disorders complicating childbirth; F32.A Depression, unspecified; O69.81X0 Labor and delivery complicated by cord around neck, without compression, not applicable or unspecified; O70.1 Second degree perineal laceration during delivery; O71.89 Other specified obstetric trauma; Z3A.38 38 weeks gestation of pregnancy; Z37.0 Single live birth; Z14.8 Genetic carrier of other disease; O14.95 Unspecified pre-eclampsia, complicating the puerperium
CPT/HCPCS: 36415; 51702; 59025; 59409; 80053; 81001; 82570; 83735; 84156; 84315; 85025; 85027; 86850; 86900; 96372; 99211; J2405; J2590; J2765; J2795; J3475; J3490; J7120; J7121; J9999